=== PATIENT | male | born 2000 | race Two or more races ===

== ENCOUNTER 2018-02-03 18:10 | Emergency (ER) | payer OTHER, MEDICAID ==
[2018-02-03 18:27] VITALS: BP 122/63
[2018-02-03] MEDS ORDERED: KETOROLAC TROMETHAMINE INJ/PF 30 MG/1 ML SDV IM ONE (18:35)
--- NOTE | 2018-02-03 18:36 | ER Document Report ---
HPI - HPI Pain Level: 4 Notes: Patient is a 18-year-old male who presents to the ED complaining of left knee pain status post injury while at work. Patient states that he has a history of issues with his MCL and ACL in the past. Patient states that he was on the left when it dropped suddenly and all this weight went down his knee causing pain immediately. Patient states that he has had difficulty flexing his knee because of the pain since then. The pain does not radiate. He has not noticed any obvious swelling or bruising. He denies any drug allergies. Denies any IV drug use. Denies any headache, fever, head injury, neck pain, URI, sore throat , chest pain, palpitations, syncope, cough, shortness of breath, wheeze, dyspnea , abdominal pain, nausea/vomiting/diarrhea, urinary retention, dysuria, hematuria, back pain, loss of control of bowel or bladder, numbness/tingling, saddle anesthesia, muscle paralysis/weakness, or rash. - ROS Systems Reviewed and Negative: Yes All other systems reviewed and negative Past Medical History - Social History Smoking Status: Unknown if Ever Smoked Family History: Reviewed & Not Pertinent Vertical Provider Document - CONSTITUTIONAL Agree With Documented VS: Yes Notes: PHYSICAL EXAMINATION: GENERAL: Well-appearing, well-nourished and in no acute distress. LUNGS: Breath sounds clear to auscultation bilaterally and equal. No wheezes rales or rhonchi. HEART: Regular rate and rhythm without murmurs, rubs, gallops. Musculoskeletal: Lt knee: No obvious swelling, ecchymosis, erythema, warmth, or deformity. LROM to passive/active. Strength 5+/5. Pt would not allow for adequate ligament testing. Master negative, but with limited exam. N/V intact distal. Extremities: No cyanosis, clubbing, or edema b/l. Peripheral pulses 2+. Capillary refill less than 3 seconds. NEUROLOGICAL: Normal speech, limping gait. Normal sensory, motor exams PSYCH: Normal mood, normal affect. SKIN: Warm, Dry, normal turgor, no rashes or lesions noted. Course - Re-evaluation Re-evalutation: 02/03/18 19:15 Patient is an afebrile, well-hydrated, 18-year-old male who presents to the ED with left knee pain, possible internal involvement. Vitals are acceptable. PE is otherwise unremarkable for any neurovascular compromise, obvious tendon/ ligament rupture, obvious fracture/dislocation, septic joint. X-ray was unremarkable for any acute pathology. Knee immobilizer splint was placed and crutches provided. Toradol given IM today. Conservative measures for symptoms. Call orthopedics tomorrow to schedule an appointment for further evaluation and management. Recheck with your PCM in 3-5 days as well. Return to the ED with any worsening/concerning symptoms otherwise as reviewed discharge. Patient is in agreement. - Vital Signs Vital signs: Temp Pulse Resp BP Pulse Ox 98.2 F 83 15 122/63 99 02/03/18 18:24 02/03/18 18:24 02/03/18 18:24 02/03/18 18:24 02/03/18 18:24 Discharge - Discharge Clinical Impression: Left knee pain Qualifiers: Chronicity: acute Qualified Code(s): M25.562 - Pain in left knee Condition: Stable Disposition: HOME, SELF-CARE Instructions: Use of Crutches ([facility]), Ice & Elevation ([facility]), Suspected Internal Knee Injury ([facility]), Knee Immobilizing Splint ([facility]) Additional Instructions: Rest, Ice, Compression, Elevation Use crutches/splint as directed Tylenol/ibuprofen as needed Light stretches daily Strength exercises as able Moist heat and massage may help F/u with your PCP in 3-5 days for a recheck Call orthopedics tomorrow to schedule an appointment for further evaluation and management Return to the ED with any worsening symptoms and/or development of fever, headache, chest pain, palpitations, syncope, shortness of breath, trouble breathing, abdominal pain, n/v/d, muscle weakness/paralysis, numbness/tingling, swelling, redness, or other worsening symptoms that are concerning to you. Prescriptions: Naproxen 500 mg PO BID PRN #30 tablet PRN Reason: Referrals: [facility] [Provider Group] - Follow up in 3-5 days
--- NOTE | 2018-02-03 19:02 | RADIOLOGY REPORT (SQ) ---
EXAM DESCRIPTION: KNEE LEFT 4 VIEW COMPLETED DATE/TIME: 02/03/2018 6:48 pm REASON FOR STUDY: left knee pain COMPARISON: None. NUMBER OF VIEWS: Four views. TECHNIQUE: AP, lateral, and both oblique radiographic images acquired of the left knee. LIMITATIONS: None. FINDINGS: MINERALIZATION: Normal. BONES: No acute fracture or dislocation. No worrisome bone lesions. JOINT: No effusion. SOFT TISSUES: No soft tissue swelling. No radio-opaque foreign body. OTHER: No other significant finding. IMPRESSION: NEGATIVE STUDY OF THE LEFT KNEE. NO RADIOGRAPHIC EVIDENCE OF ACUTE INJURY. TECHNICAL DOCUMENTATION: JOB ID: [id number] [employer]- All Rights Reserved Reading location - IP/workstation name: [email or web address]
== END 2018-02-03 19:36 | disposition home or self-care (01) ==
LOC: ER 18:10
DX: M25.562 Pain in left knee (principal); X58.XXXA Exposure to other specified factors, initial encounter; Y99.0 Civilian activity done for income or pay
CPT/HCPCS: 99283; 96372; 73562; L1830; J1885